=== PATIENT | female | born 1970 | race Caucasian/White ===

== ENCOUNTER 2017-12-27 09:57 | Day surgery (SDC) | payer BC, OTHER ==
[~2017-12-27 09:57] MED LIST: Lactated Ringers 1,000 ML IV SCH; Lidocaine 2% 5 ML SDV ONE; Propofol 200 MG/20 ML SDV ONE
--- NOTE | 2017-12-27 10:56 | PCM.PREANE ---
Preanesthetic Assessment - Anesthesia/Transfusion/Family Hx Anesthesia History: No Prior Anesthesia Family History of Anesthesia Reaction: No Transfusion History: No Prior Transfusion(s) Intubation History: Unknown - Review of Systems General: No Symptoms Pulmonary: No Symptoms Cardiovascular: No Symptoms Gastrointestinal: Abdominal Pain Neurological: No Symptoms Other: Reports: None - Physical Assessment Height: 1.6 m Weight: 96.162 kg ASA Class: 2 Mental Status: Alert & Oriented x3 Airway Class: Mallampati = 2 Dentition: Reports: Normal Dentition Thyro-Mental Finger Breadths: 3 Mouth Opening Finger Breadths: 2 ROM/Head Extension: Full Lungs: Clear to Auscultation, Normal Respiratory Effort Cardiovascular: Regular Rate, Regular Rhythm - Allergies Allergies/Adverse Reactions: Allergies Allergy/AdvReac Type Severity Reaction Status Date / Time Penicillins Allergy Hives Verified 12/23/17 11:09 - Blood Blood Available: No - Anesthesia Plan Pre-Op Medication Ordered: None - Acknowledgements Anesthesia Type Planned: MAC Pt an Appropriate Candidate for the Planned Anesthesia: Yes Alternatives and Risks of Anesthesia Discussed w Pt/Guardian: Yes Pt/Guardian Understands and Agrees with Anesthesia Plan: Yes PreAnesthesia Questionnaire HEENT History: Reports: Other (See Below) Other HEENT History: wears glasses Gastrointestinal History: Reports: Cholelithiasis, GERD Psychiatric History: Reports: Anxiety, Depression Endocrine/Metabolic History: Reports: Hypothyroidism, Obesity/BMI 30+ - Past Surgical History Head Surgeries/Procedures: Reports: None - SUBSTANCE USE Smoking Status *Q: Never Smoker Recreational Drug Use History: No - HOME MEDS Home Medications: Home Meds Desvenlafaxine Succinate [Desvenlafaxine Succinate ER] 100 mg PO DAILY 12/23/17 [History] Levothyroxine Sodium [Synthroid] 112 mcg PO DAILY 12/23/17 [History] RABEprazole Sodium [Rabeprazole Sodium] 20 mg PO DAILY 12/23/17 [History] - CURRENT (IN HOUSE) MEDS Current Meds: Current Medications Lactated Ringer's (Ringers, Lactated) 1,000 mls @ 125 mls/hr IV ASDIRECTED BECKY Last Admin: 12/27/17 10:50 Dose: 125 mls/hr Discontinued Medications Lidocaine (Xylocaine-Mpf 2%) Confirm Administered Dose 5 ml .ROUTE .STK-MED ONE Stop: 12/27/17 08:16 Propofol (Diprivan 20 Ml) Confirm Administered Dose 400 mg .ROUTE .[facility] ONE Stop: 12/27/17 08:16
--- NOTE | 2017-12-27 11:33 | PCM.OPNOTE ---
- General Post-Op/Procedure Note Date of Surgery/Procedure: 12/27/17 Operative Procedure(s): Esophagogastroduodenoscopy with gastric biopsies and proximal gastric polypectomies. Pre Op Diagnosis: Persistent and progressive epigastric pain with heartburn. Post-Op Diagnosis: Gastritis. Gastric polyps. Anesthesia Technique: MAC (ASA II) Primary Surgeon: Jerry Mosley Condition: Good Free Text/Narrative:: Dictation [id number] CPT CODE 45772
[2017-12-27] MEDS ORDERED: Lactated Ringers 1,000 ML IV SCH (11:45)
--- NOTE | 2017-12-27 11:54 | PCM48HPAN ---
Post Anesthesia Note - EVALUATION WITHIN 48HRS OF ANESTHETIC Vital Signs in Normal Range: Yes Patient Participated in Evaluation: Yes Respiratory Function Stable: Yes Airway Patent: Yes Cardiovascular Function Stable: Yes Hydration Status Stable: Yes Pain Control Satisfactory: Yes Nausea and Vomiting Control Satisfactory: Yes Mental Status Recovered: Yes - COMMENTS/OBSERVATIONS Free Text/Narrative:: No anesthesia problems, patient skipped recovery room phase of postoperative care.
--- NOTE | 2017-12-30 11:27 | OR ---
SURGEON: Jerry Mosley M.D. DATE OF PROCEDURE: 12/27/2017 PROCEDURE PERFORMED: Esophagogastroduodenoscopy with biopsy. ANESTHESIA: MAC. ASA CLASSIFICATION: II. PREOPERATIVE DIAGNOSIS: Epigastric pain with severe reflux. POSTOPERATIVE DIAGNOSES: 1. Mild gastritis without ulceration. 2. Gastric polyps. DESCRIPTION OF PROCEDURE: The patient was taken to the endoscopy room and positioned on the endoscopy table in the supine position. Time-out was called for appropriate identification of the patient and procedure. Monitored anesthesia care was provided. A bite block was placed between the patient's teeth. The gastroscope was inserted through the bite block, into the mouth, and advanced without difficulty through the esophagus and stomach into the duodenum, where examination was carried out in a retrograde fashion. The duodenum shows no acute abnormalities. No duodenitis or ulcerations were noted. The stomach shows a mild chronic-appearing gastritis. Antral biopsies were obtained to look for the presence of Helicobacter pylori. No ulcerations were noted. The patient did have 2 or 3 small polyps in the proximal stomach, and these were removed with the cold biopsy forceps. The GE junction was carefully visualized after the stomach was aspirated and showed no acute inflammatory changes. No significant hiatal hernia was noted on examination. The esophagus demonstrated good contractility. No mid or proximal lesions were identified. The vocal cords were very briefly visualized as the scope was withdrawn. They do move symmetrically. The gastroscope was then removed with the patient having tolerated the procedure well. She was taken to recovery room in a stable condition. JAYNE / VALENTINO /[id number]
== END 2017-12-27 12:00 | disposition home or self-care (01) ==
LOC: MW.SDS 09:57
PROVIDERS: ATTEND Surgery
DX: K29.40 Chronic atrophic gastritis without bleeding (principal); K31.7 Polyp of stomach and duodenum; K21.9 Gastro-esophageal reflux disease without esophagitis; F41.9 Anxiety disorder, unspecified; E03.9 Hypothyroidism, unspecified; Z79.899 Other long term (current) drug therapy; Z88.0 Allergy status to penicillin
CPT/HCPCS: 43239; 81025; 88305; 88312; J7120; J2704

== ENCOUNTER 2018-01-31 07:55 | Day surgery (SDC) | payer OTHER ==
[~2018-01-31 07:55] MED LIST changes: +Bupivacaine 0.5% 10 ML SDV ONE; +Glycopyrrolate 0.2 MG/ML SDV ONE; +Ketorolac 30 MG/ML SDV ONE; +Midazolam 1 MG/ML 2 ML SDV ONE; +Neostigmine Methylsulfate 1 MG/ML 5 ML Syringe ONE; +Ondansetron 4 MG/2 ML SDV ONE; +Rocuronium 10 MG/ML 10 ML Syringe ONE; +ceFAZolin 1 GM Vial ONE; +cefOXitin 2 GM in Premix Bag 1 BAG IV ONE; +fentaNYL 100 MCG/2 ML SDV ONE; +fentaNYL 250 MCG/5 ML SDV ONE
[2018-01-31] MEDS ORDERED: Scopolamine 1.5 MG Transdermal Patch TRDERM PRN (08:14)
[2018-01-31] MEDS ORDERED: Midazolam 1 MG/ML 2 ML SDV IVPUSH ONE (08:32)
--- NOTE | 2018-01-31 08:34 | PCM.PREANE ---
Preanesthetic Assessment - Anesthesia/Transfusion/Family Hx Anesthesia History: Prior Anesthesia Without Reaction Family History of Anesthesia Reaction: No Transfusion History: No Prior Transfusion(s) Intubation History: Unknown - Review of Systems General: No Symptoms Pulmonary: No Symptoms Cardiovascular: No Symptoms Gastrointestinal: No Symptoms Neurological: No Symptoms Other: Reports: None - Physical Assessment NPO Status Date: 01/30/18 Height: 1.6 m Weight: 95.254 kg ASA Class: 2 Mental Status: Alert & Oriented x3 Airway Class: Mallampati = 1 Dentition: Reports: Normal Dentition ROM/Head Extension: Full Lungs: Clear to Auscultation, Normal Respiratory Effort Cardiovascular: Regular Rate - Lab Values: Laboratory Last Values Urine HCG, Qual NEGATIVE (NEGATIVE) 01/31/18 07:57 - Allergies Allergies/Adverse Reactions: Allergies Allergy/AdvReac Type Severity Reaction Status Date / Time Penicillins Allergy Hives Verified 01/28/18 08:26 - Acknowledgements Anesthesia Type Planned: General Anesthesia Pt an Appropriate Candidate for the Planned Anesthesia: Yes Alternatives and Risks of Anesthesia Discussed w Pt/Guardian: Yes Pt/Guardian Understands and Agrees with Anesthesia Plan: Yes PreAnesthesia Questionnaire HEENT History: Reports: Other (See Below) Other HEENT History: wears glasses Gastrointestinal History: Reports: Cholelithiasis, GERD Genitourinary History: [employer] History: Reports: Psychiatric History: Reports: Anxiety, Depression Endocrine/Metabolic History: Reports: Hypothyroidism, Obesity/BMI 30+ - Past Surgical History Head Surgeries/Procedures: Reports: None GI Surgical History: Reports: EGD - SUBSTANCE USE Smoking Status *Q: Never Smoker Recreational Drug Use History: No - HOME MEDS Home Medications: Home Meds Desvenlafaxine Succinate [Desvenlafaxine Succinate ER] 100 mg PO DAILY 12/23/17 [History] Levothyroxine Sodium [Synthroid] 112 mcg PO DAILY 12/23/17 [History] RABEprazole Sodium [Rabeprazole Sodium] 20 mg PO DAILY 12/23/17 [History] - CURRENT (IN HOUSE) MEDS Current Meds: Current Medications Lactated Ringer's (Ringers, Lactated) 1,000 mls @ 125 mls/hr IV ASDIRECTED BECKY Scopolamine (Transderm-Scop) 1.5 mg TRDERM Q72H PRN PRN Reason: Nausea/Vomiting Discontinued Medications Bupivacaine HCl (Sensorcaine-Mpf 0.5%) Confirm Administered Dose 30 ml .ROUTE .STK-MED ONE Stop: 01/31/18 07:27 Cefazolin Sodium (Ancef) Confirm Administered Dose 1 gm .ROUTE .STK-MED ONE Stop: 01/31/18 07:27 Fentanyl (Sublimaze) Confirm Administered Dose 100 mcg .ROUTE .STK-MED ONE Stop: 01/31/18 07:26 Fentanyl (Sublimaze) Confirm Administered Dose 250 mcg .ROUTE .STK-MED ONE Stop: 01/31/18 07:27 Fentanyl (Sublimaze) Confirm Administered Dose 100 mcg .ROUTE .STK-MED ONE Stop: 01/31/18 07:30 Glycopyrrolate (Robinul) Confirm Administered Dose 0.6 mg .ROUTE .STK-MED ONE Stop: 01/31/18 07:28 Cefoxitin Sodium 2 gm/ Premix 50 mls @ 100 mls/hr IV ONETIME ONE Stop: 01/31/18 07:29 Cefoxitin Sodium (Mefoxin In Dextrose,Iso-Osm 2 Gm/50 Ml) Confirm Administered Dose 50 mls @ as directed .ROUTE .STK-MED ONE Stop: 01/31/18 07:37 Ketorolac Tromethamine (Toradol) Confirm Administered Dose 30 mg .ROUTE .STK- MED ONE Stop: 01/31/18 07:28 Lidocaine (Xylocaine-Mpf 2%) Confirm Administered Dose 10 ml .ROUTE .STK-MED ONE Stop: 01/31/18 07:26 Midazolam HCl (Versed 1 Mg/Ml) Confirm Administered Dose 2 mg .ROUTE .STK-MED ONE Stop: 01/31/18 07:27 Neostigmine Methylsulfate (Neostigmine) Confirm Administered Dose 5 mg .ROUTE .STK-MED ONE Stop: 01/31/18 07:28 Ondansetron HCl (Zofran) Confirm Administered Dose 4 mg .ROUTE .STK-MED ONE Stop: 01/31/18 07:28 Propofol (Diprivan 20 Ml) Confirm Administered Dose 400 mg .ROUTE .STK-MED ONE Stop: 01/31/18 07:26 Rocuronium Nicholls (Zemuron) Confirm Administered Dose 100 mg .ROUTE .STK-MED ONE Stop: 01/31/18 07:28
[2018-01-31] MEDS ORDERED: fentaNYL 100 MCG/2 ML SDV ONE (09:35)
[2018-01-31] MEDS ORDERED: ePHEDrine 50 MG/ML SDV ONE (09:36)
[2018-01-31] MEDS ORDERED: Propofol 200 MG/20 ML SDV ONE (09:48)
[2018-01-31] MEDS ORDERED: Glycopyrrolate 0.2 MG/ML SDV ONE (10:11)
[2018-01-31] MEDS ORDERED: Acetaminophen/HYDROcodone 325-5 MG Tab PO PRN (10:33)
--- NOTE | 2018-01-31 10:36 | PCM.OPNOTE ---
- General Post-Op/Procedure Note Date of Surgery/Procedure: 01/31/18 Operative Procedure(s): Laparoscopic cholecystectomy Pre Op Diagnosis: Symptomatic cholelithiasis Post-Op Diagnosis: Cholelithiasis with cholecystitis Anesthesia Technique: General ET Tube (ASA II) Primary Surgeon: Jerry Mosley Fluid Replacement, Intraop: 1,200 EBL in mLs: 20 Condition: Good Free Text/Narrative:: Intake & Output 01/30/18 01/31/18 01/31/18 19:59 03:59 11:59 Intake Total 50 Balance 50 Dictation [id number] CPT CODE [id number]
[2018-01-31] MEDS ORDERED: Racepinephrine 2.25% 0.5 ML Neb Soln NEB ONE (10:43)
[2018-01-31] MEDS ORDERED: Lactated Ringers 1,000 ML IV SCH (10:45)
[2018-01-31] MEDS: fentaNYL 100 MCG/2 ML SDV IVPUSH PRN ×2 (10:55→11:00)
[2018-01-31] MEDS: Morphine 4 MG/ML Syringe IVPUSH PRN ×3 (11:15→11:38)
--- NOTE | 2018-01-31 11:48 | PCM.POSTAN ---
POST ANESTHESIA ASSESSMENT - MENTAL STATUS Mental Status: Alert, Oriented - VITAL SIGNS Pulse Rate: 77 SaO2: 99 (2l/m nc) Resp Rate: 13 Blood Pressure: 124/71 - RESPIRATORY Respiratory Status: Respiratory Rate WNL, Airway Patent, O2 Saturation Stable Free Text/Narrative:: required racemic neb treatment: good response, no upper airway problem - CARDIOVASCULAR CV Status: Pulse Rate WNL, Blood Pressure Stable - GASTROINTESTINAL GI Status: No Symptoms - PAIN Pain Score: 5 (c/o pain) - POST OP HYDRATION Hydration Status: Adequate & Stable
[2018-01-31] MEDS ORDERED: Acetaminophen 1,000 MG in Premix Bag 1 BAG IV ONE (12:19)
--- NOTE | 2018-01-31 13:11 | OR ---
SURGEON: Jerry Mosley M.D. DATE OF PROCEDURE: 01/31/2018 OPERATION PERFORMED: Laparoscopic cholecystectomy. ANESTHESIA: General endotracheal. ASA CLASSIFICATION: II. PREOPERATIVE DIAGNOSIS: Symptomatic cholelithiasis POSTOPERATIVE DIAGNOSIS: Cholelithiasis with cholecystitis. INTRAOPERATIVE FLUID REPLACEMENT: 1200 mL of crystalloid. ESTIMATED BLOOD LOSS: 20 mL. DESCRIPTION OF PROCEDURE: The patient was taken to the operating room and placed on the operating table in the supine position. Time-out was called for appropriate identification of the patient and procedure. Thigh-high TEDs and sequential compression boots were placed. Following satisfactory attainment of general endotracheal anesthesia, a Freeman catheter was placed in the patient's urinary bladder. The abdomen was prepped with DuraPrep solution. Sterile drapes were applied. The skin below the umbilicus was infiltrated with 0.5% Marcaine solution. The skin incision was made and deepened through the subcutaneous tissue obtaining hemostasis with the use of electrocautery. Veress needle was introduced into the peritoneal cavity. Saline drop test was positive. Carbon dioxide pneumoperitoneum was established with the relief set at 13 cm of water. Once we had a satisfactory pneumoperitoneum, 5 mm camera and port were placed through the infraumbilical incision. The patient was now positioned with her feet down and rolled to the left. Under camera vision, 12 mm subxiphoid, 5 mm midclavicular, and 5 mm anterior axillary ports were placed. Each incision had preemptively been infiltrated with 0.5% Marcaine solution. The gallbladder was grasped and adhesions were taken down. The cholecystohepatic triangle was dissected free obtaining good critical view of the cystic duct, which was now hemoclipped and divided with the laparoscopic Metzenbaum scissor. Cystic artery was identified next and again after critical view was hemoclipped proximally and distally before division with the laparoscopic Metzenbaum scissor. The gallbladder was then dissected away from its bed using electrocautery. There was a bit of an intrahepatic component. Once the gallbladder was dissected free, this was placed in an Endopouch. The bed of the gallbladder was inspected for hemostasis and there was some minor oozing from the gallbladder bed itself. The right upper quadrant was irrigated with sterile saline solution. All fluid was aspirated. Surgicel and Avitene were placed into the bed of the gallbladder. The right hemidiaphragm was then irrigated with 250 mL of saline containing 20 mL of 0.5% Marcaine. Solution was left in place. The Endo pouch containing gallbladder and 12 mm subxiphoid ports were removed. Under camera vision 12, the 5 mm anterior axillary, and midclavicular ports were removed, and finally the infraumbilical camera and port were removed. The wounds were inspected for hemostasis and small bleeding sites were electrocoagulated. The infraumbilical and subxiphoid incisions were closed in 2 layers approximating the subcutaneous tissue with 3-0 Vicryl and the skin with subcuticular 4-0 Monocryl. The anterior axillary and midclavicular incisions were closed with subcuticular 4-0 Monocryl. All incisions were Steri-Stripped and dressed with sterile Tegaderm pads. Sponge, needle, and instrument counts were all correct. Freeman catheter was removed prior to emergence from anesthesia. Following emergence from anesthesia and extubation, the patient was taken to recovery room in stable condition. JAYNE AVELAR /[id number]
--- NOTE | 2018-01-31 13:24 | PCM48HPAN ---
Post Anesthesia Note - EVALUATION WITHIN 48HRS OF ANESTHETIC Vital Signs in Normal Range: Yes Patient Participated in Evaluation: Yes Respiratory Function Stable: Yes Airway Patent: Yes Cardiovascular Function Stable: Yes Hydration Status Stable: Yes Pain Control Satisfactory: Yes Nausea and Vomiting Control Satisfactory: Yes Mental Status Recovered: Yes Pulse Rate: 77 Resp Rate: 16 Blood Pressure: 124/71
== END 2018-01-31 14:00 | disposition home or self-care (01) ==
LOC: MW.SDS 07:55
PROVIDERS: ATTEND Surgery
DX: K80.10 Calculus of gallbladder with chronic cholecystitis without obstruction (principal); E03.9 Hypothyroidism, unspecified; E66.9 Obesity, unspecified; Z68.37 Body mass index [BMI] 37.0-37.9, adult; F41.9 Anxiety disorder, unspecified; F32.9 Major depressive disorder, single episode, unspecified; K21.9 Gastro-esophageal reflux disease without esophagitis; Z79.899 Other long term (current) drug therapy; Z88.0 Allergy status to penicillin
CPT/HCPCS: 47562; 81025; 94640; A9270; J2250; J2270; J2405; J3010; J7120; J0690; J1885; J2704